=== PATIENT | male | born 1990 | race Caucasian/White ===

== ENCOUNTER 2020-05-05 09:53 | Emergency (ER) | payer SELFPAY ==
[~2020-05-05] VITALS: Ht 177.8 cm; Wt 95.2 kg
[2020-05-05] MEDS ORDERED: Veetids 500500 MG PO (10:18)
[2020-05-05] MEDS ORDERED: HYDR1TAB94 PO (10:18)
== END 2020-05-05 10:33 | disposition home or self-care (01) ==
LOC: ER 09:53
DX: K04.7 Periapical abscess without sinus (principal); K02.9 Dental caries, unspecified; F17.210 Nicotine dependence, cigarettes, uncomplicated
CPT/HCPCS: 99282; A9270